=== PATIENT | male | born 1970 | race Caucasian/White ===

== ENCOUNTER 2018-05-14 08:58 | Emergency (ER) | payer BC ==
[~2018-05-14] VITALS: Ht 152.4 cm; Wt 113.4 kg
[2018-05-14] MEDS ORDERED: FAMOTIDINE 20 MG/2 ML VIAL IVP ONE (09:30)
[2018-05-14] MEDS ORDERED: methylPREDNISolone SOD SUCC PF 125 MG/2 ML VIAL. IV ONE (09:30)
[2018-05-14] MEDS ORDERED: IV NORMAL SALINE 1000ML BAG 1,000 ML IV ONE (09:30)
[2018-05-14] MEDS ORDERED: diphenhydrAMINE 50 MG/ML VIAL IVP ONE (09:30)
[2018-05-14] MEDS ORDERED: IPRATRPIUM/ALBUTEROL 0.5/2.5MG 3 ML NEBU. NEB ONE (09:30)
[2018-05-14] MEDS ORDERED: IOHEXOL 300 MG/ML 100ML VIAL. IV ONE (09:45)
[2018-05-14] MEDS ORDERED: CONTRAST GIVEN. MC PRN (09:45)
[2018-05-14 10:09] LABS: CALCIUM 9.3 mg/dL (8.5-10.1); GFR 80.4; POTASSIUM 3.9 mmol/L (3.5-5.1)
[2018-05-14] MEDS ORDERED: fentaNYL PF VIAL 100 MCG/2 ML VIAL IV ONE (10:45)
--- NOTE | 2018-05-14 11:22 | PHYS DOC ---
Past Medical History Past Medical History: No Pertinent History Additional Past Surgical Histo: bilateral orthoscopic knee Alcohol Use: Occasionally Drug Use: None Adult General Chief Complaint Chief Complaint: SHORTNESS OF BREATH HPI HPI Patient is a 47 year old male who presents with throat swelling and loss of voice. Patient was at baseline health until he awoke this morning. Since waking , he had some difficulty swallowing and tolerating his own secretions. He does complain of a sore throat. The patient became concerned when he had some difficulty breathing so he came to the emergency department. No recent fever or chills. He has never had symptoms like this in the past. The patient does not take MANNY inhibitor medications. The patient states he was scheduled to have a molar removed on the left mandibular area at the dentist office today. He also does give a history recently positive for some sinus and upper airway symptoms prior to onset of the throat swelling Review of Systems Review of Systems Constitutional: Denies fever or chills Eyes: Denies change in visual acuity HENT: Denies nasal congestion Respiratory: Denies cough or shortness of breath Cardiovascular: No additional information not addressed in HPI GI: Denies abdominal pain Musculoskeletal: Denies back pain or joint pain Integument: Denies rash or skin lesions Neurologic: Denies headache Endocrine: Denies polyuria All other systems were reviewed and found to be within normal limits, except as documented in this note. Current Medications Current Medications Current Medications Medications (Trade) Dose Ordered Sig/Kayla Start Time Stop Time Status Last Admin Dose Admin Albuterol/ Ipratropium (Duoneb) 3 ml 1X ONCE 05/14/18 09:30 05/14/18 09:32 DC 05/14/18 09:47 3 ML Diphenhydramine HCl (Benadryl) 12.5 mg 1X ONCE 05/14/18 09:30 05/14/18 09:32 DC 05/14/18 09:56 12.5 MG Famotidine (Pepcid Vial) 20 mg 1X ONCE 05/14/18 09:30 05/14/18 09:32 DC 05/14/18 09:55 20 MG Fentanyl Citrate (Fentanyl 2ml Vial) 75 mcg 1X ONCE 05/14/18 10:45 05/14/18 10:46 DC Info (CONTRAST GIVEN -- Rx MONITORING) 1 each PRN DAILY PRN 05/14/18 09:45 05/16/18 09:44 Iohexol (Omnipaque 300 Mg/ml) 75 ml 1X ONCE 05/14/18 09:45 05/14/18 09:46 DC 05/14/18 09:45 70 ML Methylprednisolone Sodium Succinate (SOLU-Medrol 125MG VIAL) 125 mg 1X ONCE 05/14/18 09:30 05/14/18 09:32 DC 05/14/18 09:58 125 MG Sodium Chloride 1,000 ml @ 1,000 mls/hr 1X ONCE 05/14/18 09:30 05/14/18 10:29 DC 05/14/18 09:51 1,000 MLS/HR Allergies Allergies Allergies Coded Allergies Type Severity Reaction Last Updated Verified Penicillins Allergy Intermediate unknown 05/14/18 Yes Physical Exam Physical Exam Constitutional: Well developed, well nourished, no acute distress but with some difficulty handling his own secretions, non-toxic appearance HENT: Normocephalic, atraumatic, bilateral external ears normal, no discernible landmarks in the posterior oral pharynx 2/2 swelling. Cannot visualize uvula. Eyes: PERRLA, EOMI Neck: Normal range of motion, no tenderness, supple, no stridor, no palpable masses Cardiovascular:Heart rate regular rhythm, no murmur Lungs & Thorax: Bilateral breath sounds clear to auscultation Skin: Warm, dry, no erythema Extremities: No edema Neurologic: Alert and oriented X 3 Psychologic: Affect normal Current Patient Data Vital Signs Vital Signs Date Time Temp Pulse Resp B/P (MAP) Pulse Ox O2 Delivery O2 Flow Rate FiO2 05/14/18 10:45 94 142/77 (98) 97 05/14/18 09:48 Room Air 05/14/18 09:00 18 05/14/18 08:58 98.0 98.0 Lab Values Laboratory Tests Test 05/14/18 09:46 White Blood Count 16.7 x10^3/uL (4.0-11.0) H Red Blood Count 4.99 x10^6/uL (4.30-5.70) Hemoglobin 14.0 g/dL (13.0-17.5) Hematocrit 42.2 % (39.0-53.0) Mean Corpuscular Volume 85 fL (79-100) Mean Corpuscular Hemoglobin 28 pg (25-35) Mean Corpuscular Hemoglobin Concent 33 g/dL (31-37) Red Cell Distribution Width 13.8 % (11.5-14.5) Platelet Count 343 x10^3/uL (140-400) Neutrophils (%) (Auto) 80 % (31-73) H Lymphocytes (%) (Auto) 10 % (24-48) L Monocytes (%) (Auto) 9 % (0-9) Eosinophils (%) (Auto) 1 % (0-3) Basophils (%) (Auto) 1 % (0-3) Neutrophils # (Auto) 13.2 x10^3uL (1.8-7.7) H Lymphocytes # (Auto) 1.7 x10^3/uL (1.0-4.8) Monocytes # (Auto) 1.5 x10^3/uL (0.0-1.1) H Eosinophils # (Auto) 0.2 x10^3/uL (0.0-0.7) Basophils # (Auto) 0.1 x10^3/uL (0.0-0.2) Platelet Estimate Pending Sodium Level 137 mmol/L (136-145) Potassium Level 3.9 mmol/L (3.5-5.1) Chloride Level 101 mmol/L (98-107) Carbon Dioxide Level 28 mmol/L (21-32) Anion Gap 8 (6-14) Blood Urea Nitrogen 6 mg/dL (8-26) L Creatinine 1.0 mg/dL (0.7-1.3) Estimated GFR (Cockcroft-Gault) 80.4 Glucose Level 116 mg/dL (70-99) H Calcium Level 9.3 mg/dL (8.5-10.1) Laboratory Tests 05/14/18 09:46 Laboratory Tests 05/14/18 09:46 EKG EKG [] Radiology/Procedures Radiology/Procedures There is soft tissue swelling in the tonsillar regions bilaterally. There is also soft tissue thickening of the uvula. This extends inferiorly with narrowing of the nasopharyngeal and oropharyngeal airways. It extends inferiorly to involve the left aryepiglottic fold and piriform sinus. At the level the piriform sinus there is a suggestion of a partially enhancing rim raising possibility of developing abscess. There is a tiny radiopacity within this region was which does does not definitely connect to the nearby cartilage and could represent a foreign body.The laryngeal airway is narrowed. The subglottic trachea is unremarkable. There is bilateral cervical adenopathy. The thyroid, submandibular and parotid glands show no intrinsic abnormality. Mucosal densities in both maxillary sinuses may represent retention cysts. No free fluid is evident in the paranasal sinuses. IMPRESSION: 1. Extensive inflammatory process extending from the tonsillar regions inferiorly, primarily on the left down to the level of the piriform sinus where there is rim-like enhancement raising the possibility of developing abscess. There is associated narrowing of the posterior oropharynx, posterior nasopharynx as well as the laryngeal airway. 2. Small radiopacity in the left piriform sinus region which could be a foreign body. 3. Bilateral cervical adenopathy. Course & Med Decision Making Course & Med Decision Making Pertinent Labs and Imaging studies reviewed. (See chart for details) 11:20: Patient was seen in the emergency department for loss of voice and difficulty swallowing as well as handling his own secretions. He did not have acute respiratory distress but his physical exam, particularly of the posterior oral pharynx, is concerning that he is at risk for airway compromise. Rapid strep screen was completed and was positive. CT scan of the neck was also completed to rule out any abscess or other cause for his symptoms. Patient is allergic to penicillin. He was ordered to have is from ice and 500 mg IV in the emergency department. He also received 125 of Solu-Medrol, DuoNeb, Benadryl, Pepcid in the ER. Plan will be for admission for close observation given the amount of swelling present. 12:24: change of plan: CT scan is returned with possible early formation of abscess and piriform sinus. Also, extensive inflammatory changes. Currently, no ENT available at this facility. I discussed this patient with at [facility]. I also placed the CT scan on the cloud for review. Plan is to transfer the patient to [facility] where her ENT is available. During the ED course, the patient did improve. He was able to phonate better. He was also able to handle his secretions better. He did not have acute respiratory distress, hypoxia, or airway compromise during the ED course. IV clindamycin is ordered to expand antibox coverage. Patient is PCN allergic (childhood allergy , he cannot remember the rxn). IV LR at 75 ml/hr. Will be transferred via EMS to [facility]. Plan of care is explained to the patient and he is agreeable. Dragon Disclaimer Dragon Disclaimer This electronic medical record was generated, in whole or in part, using a voice recognition dictation system. Departure Departure Referrals: UNKNOWN PCP NAME (PCP) CHON LOVETT DO May 14, 2018 11:22
[2018-05-14] MEDS ORDERED: AZITHRMYCN 500MG IVPB FOR OMNI 250 ML IV ONE (11:30)
--- NOTE | 2018-05-14 11:40 | RAD ---
CT of the neck with contrast, 05/14/2018: HISTORY: Neck swelling, possible abscess Multidetector CT imaging was performed following an IV bolus injection of iodinated contrast material. There is soft tissue swelling in the tonsillar regions bilaterally. There is also soft tissue thickening of the uvula. This extends inferiorly with narrowing of the nasopharyngeal and oropharyngeal airways. It extends inferiorly to involve the left aryepiglottic fold and piriform sinus. At the level the piriform sinus there is a suggestion of a partially enhancing rim raising possibility of developing abscess. There is a tiny radiopacity within this region was which does does not definitely connect to the nearby cartilage and could represent a foreign body.The laryngeal airway is narrowed. The subglottic trachea is unremarkable. There is bilateral cervical adenopathy. The thyroid, submandibular and parotid glands show no intrinsic abnormality. Mucosal densities in both maxillary sinuses may represent retention cysts. No free fluid is evident in the paranasal sinuses. IMPRESSION: 1. Extensive inflammatory process extending from the tonsillar regions inferiorly, primarily on the left down to the level of the piriform sinus where there is rim-like enhancement raising the possibility of developing abscess. There is associated narrowing of the posterior oropharynx, posterior nasopharynx as well as the laryngeal airway. 2. Small radiopacity in the left piriform sinus region which could be a foreign body. 3. Bilateral cervical adenopathy. PQRS Compliance Statement: One or more of the following individualized dose reduction techniques were utilized for this examination: 1. Automated exposure control 2. Adjustment of the mA and/or kV according to patient size 3. Use of iterative reconstruction technique Electronically signed by: Arjun Mayen MD (05/14/2018 11:37 AM) [facility]
[2018-05-14 12:18] LABS: BASO # 0.1 x10^3/uL (0.0-0.2); BASO % 1 % (0-3); EOS # 0.2 x10^3/uL (0.0-0.7); EOS % 1 % (0-3); HEMATOCRIT 42.2 % (39.0-53.0); LYMPH # 1.7 x10^3/uL (1.0-4.8); LYMPH % 10 % (24-48); MEAN CORPUSCULAR HEMOGLOBIN 28 pg (25-35); MEAN CORPUSCULAR HGB CONC 33 g/dL (31-37); MEAN CORPUSCULAR VOLUME 85 fL (79-100); MONO # 1.5 x10^3/uL (0.0-1.1); MONO % 9 % (0-9); NEUT # 13.2 x10^3uL (1.8-7.7); NEUT % 80 % (31-73); PLATELET COUNT 343 x10^3/uL (140-400); RED BLOOD COUNT 4.99 x10^6/uL (4.30-5.70); RED CELL DISTRIBUTION WIDTH 13.8 % (11.5-14.5); WHITE BLOOD COUNT 16.7 x10^3/uL (4.0-11.0)
[2018-05-14] MEDS ORDERED: CLINDAMYCIN 600MG PREMIX 50 ML IV ONE (12:30)
[2018-05-14] MEDS ORDERED: IV RINGERS,LACTATED 1000ML 1,000 ML IV ONE (12:30)
[2018-05-14 13:15] VITALS: BP 128/80
[2018-05-14 14:03] LABS: % BANDS 5 % (0-9); % EOS 1 % (0-5); % LYMPHS 15 % (24-48); % MONOS 11 % (0-10); % SEGS 68 % (35-66)
[2018-05-14 14:04] LABS: PLT ESTIMATE ADEQUATE (ADEQUATE)
== END 2018-05-14 13:42 | disposition short-term general hospital (02) ==
LOC: ER 08:58 → 5 NORTH 11:10 → UNDOADMIN 11:10 → ER 13:42
DX: J02.9 Acute pharyngitis, unspecified (principal); R06.02 Shortness of breath; Z88.0 Allergy status to penicillin
CPT/HCPCS: 36415; 70491; 80048; 85007; 85025; 87880; 96365; 96367; 96375; 99285; J0456; J1200; J2930; J3490; J7030; J7620; Q9967; S0028; 96360; 96361; J7120